=== PATIENT | female | born 1985 | race Caucasian/White ===

== ENCOUNTER 2019-11-03 12:53 | Outpatient (CLI) | payer BC, SELFPAY ==
--- NOTE | 2019-11-03 13:06 | US_ITS ---
WS: [id number] Pelvic ultrasound, Clinical Data: abdominal bloating Comparison: None. Findings: The uterus measures 4.16 cm x 4.82 cm x 8.39 cm. Scar from a prior was identified. The endometrium is 0.54 cm. No intrauterine or abnormal intrauterine mass is seen. The left ovary was not identified. The right ovary measures 1.22 cm x 1.33 cm x 2.20 cm with a small cyst measuring 0.77 x 1.51 x 1.97 c m. US/US pelvic with transvaginal Impression: 1. Negative pelvic ultrasound. 2. Left ovary not identified.
--- NOTE | 2019-11-03 13:06 | US_ITS ---
WS: [id number] Abdomen ultrasound, 11/03/2019 Clinical Data: Abdominal bloating Comparison: None. Findings: The pancreas shows no cyst, pseudocyst or evidence of pancreatitis. The liver shows no cysts, masses or dilated intrahepatic ducts. The gallbladder has no stones or sludge. The is normal with no pericholecystic fluid. The common bile duct is 0.22 cm and no intraductal abnormalities are noted. The right kidney is 4.06 x 5.20 x 11.66 cm. No cysts, masses or hydronephrosis is seen. The left kidney is 3.85 x 4.19 x 10.91 cm. No cysts, masses or hydronephrosis is seen. The abdominal aorta is not dilated and the inferior vena cava has normal flow. No vascular abnormalit ies are seen. The spleen measures 4.20 x 4.27 x 9.74 cm and there are no intrasplenic masses are capsular abnormali ties. US/US abdomen complete* [id number] Impression: Negative abdomen ultrasound.
[2019-11-03 14:56] LABS: Basophils % 0.2 %; Eosinophils # 0.1 10^3/uL (0.0-0.8); Eosinophils % 2.2 %; Hemoglobin 12.8 g/dL (11.5-15.3); Lymphocytes # 1.6 10^3/uL (0.8-4.8); Lymphocytes % 31.9 %; Mean Corpuscular HGB Conc 32.8 g/dL (30.0-36.0); Mean Corpuscular Hemoglobin 30.3 pg (28.0-34.0); Mean Corpuscular Volume 92.2 fL (81-99); Mean Platelet Volume 10.6 fL (7.4-10.4); Monocytes # 0.5 10^3/uL (0.2-0.9); Monocytes % 9.3 %; Neutrophils # 2.8 10^3/uL (1.8-7.7); Neutrophils % 56.2 %; Nucleated Red Blood Cells % 0 %; Platelet Count 222 10^3/cmm (130-400); Red Blood Count 4.23 10^6/uL (4.1-5.3); Red Cell Distribution Width 12.8 % (12.1-15.1)
[2019-11-03 15:20] LABS: Alanine Aminotransferase 23 U/L (0-33); Albumin Level 4.6 g/dL (3.5-5.2); Alkaline Phosphatase 50 IU/L (35-105); Amylase 63 U/L (28-100); Anion Gap 14.9 (5-19); Aspartate Amino Transferase 24 U/L (0-32); Blood Urea Nitrogen 9 mg/dL (6-20); Calcium 9.3 mg/Dl (8.6-10.0); Carbon Dioxide 24 mmol/L (22-29); Chloride 102 mmol/L (98-107); Chol HDL Ratio 4.02 mg/dL (0.0-4.40); Cholesterol 165 mg/dL (0-200); Globulin 2.3 g/dL (1.3-4.6); Glomerular Filtration Rate 115.1 mL/min (90-130); Glucose 89 mg/dL (74-109); HDL Cholesterol 41 mg/dL (60-100); LDL Cholesterol Calculated 109 mg/dL (50-129); LDL HDL Ratio 2.66 RATIO (0.00-3.22); Lipase 24 U/L (13-60); Potassium 3.9 mmol/L (3.5-5.1); Sodium 137 mmol/L (136-145); Thyroid Stimulating Hormone 0.54 uIU/mL (0.27-4.20); Total Bilirubin 0.2 mg/dL (0.15-1.2); Total Protein 6.9 g/dL (6.6-8.7); Triglycerides 74 mg/dL (0-150)
[2019-11-03 15:29] LABS: 25 Hydroxy Vitamin D 26 ng/mL (30-100)
[2019-11-03 15:33] LABS: Add Urine Microscopic? YES; Bilirubin Urine Neg (NEGATIVE); Blood Urine Neg (Negative); Glucose Urine UA Norm (Normal); Ketones Urine 1+ (Negative); Leukocyte Esterase Urine Negative (Negative); Nitrate Urine Negative (Negative); Protein Urine Neg (Negative); Urine Appearance Clear (CLEAR); Urine Color Yellow (Yellow); Urobilinogen Urine Norm (Negative)
[2019-11-03 15:38] LABS: Add Urine Culture? No; Bacteria Urine TRACE; Squamous Epithelial Cell Urine 0-4 (0-5)
[2019-11-04 02:55] LABS: Estmated Average Glucose 91; Hemoglobin A1C 4.8 % (4.0-6.0)
== END 2019-11-03 12:54 | disposition home or self-care (01) ==
PROVIDERS: PCP Nurse Practitioner Family; Visit Provider Nurse Practitioner Family
DX: R53.83 Other fatigue (principal); R14.0 Abdominal distension (gaseous); E55.9 Vitamin D deficiency, unspecified; Z79.899 Other long term (current) drug therapy
CPT/HCPCS: 74018; 76700; 76830; 76856; 80053; 80061; 81003; 82150; 82306; 83036; 83690; 84443; 85025

== ENCOUNTER 2019-12-16 09:09 | Day surgery (SDC) | payer BC, SELFPAY ==
[2019-11-24 08:35] VITALS: BMI 24.1
--- NOTE | 2019-12-16 09:27 | ANES.PREANE2 ---
Pre-Anesthetic Assessment Pre-Anesthetic Assessment: Height/Weight: Height 1.7 m Weight 69.853 kg Preop Diagnosis: Abdominal pain Proposed Procedure: Operation Date: 12/16/19 11:00 Proposed Procedures p EGD(Not Applicable) - Adarsh Vanegas MD Familial anesthetic complications: None Was Beta Dary taken within 24 hours: N/A Last intake: NPO > 8 hrs Social: Social History: No alcohol and No tobacco Exam: Pre-Anes Outpt Exam: alert, oriented x 3, clear to auscultation bilaterally and regular rate & rhythm Airway: Cervical ROM: WNL MP: 1 Dentition: Chipped Pulmonary: Pulmonary: None reported CV/HEM: CV/HEM: HTN : : None reported Hepatic: Hepatic: None reported GI: GI: GERD Comments: hx of PUD 8 yrs ago Metabolic: Metabolic: None reported Musc/skel: Musc/skel: None reported Neuropsych: Neuropsych: Seizure (Seizure 6 yrs ago (started age 11 - unknown etilogy, no longer on treatment)) Anesthetic Plan: ASA status: 2 Anesthesia: MAC Risk of > 500 ml blood loss (7ml/kg in children): No PFSH Anesthesia PFSH: Social History Smoking and tobacco status: never smoked Second hand smoke exposure: No Smoking risk assessment/counseling performed?: No Alcohol intake: never Desire information about alcohol rehabilitation?: No Counseling given: No Desire information about substance/drug rehabilitation?: No Counseling given: No Lives independently: Yes Current occupational status: unemployed History of recent travel: No Data Anesthesia Cardiac Studies: No Data to Display
[2019-12-16 10:30] VITALS: BP 125/79; PULSE 84; RESP 18; TEMP 36.8; O2SAT 97
--- NOTE | 2019-12-16 10:38 | W.PM.OPSUD ---
Surgery/Procedure H&P Update DATE OF PROCEDURE: December 16, 2019 DATE H&P PERFORMED: 11/17/19 H&P UPDATE INFORMATION: I have reviewed H&P completed within last 30 days, I have examined patient prior to procedure and No changes to prior documentation PREOP DIAGNOSIS: Abdominal pain PLANNED PROCEDURE: Operation Date: 12/16/19 11:00 Proposed Procedures p EGD(Not Applicable) - Adarsh Vanegas MD
[2019-12-16 10:46] LABS: OR HCG Qualitative Urine Negative (Negative)
[2019-12-16] MEDS: sodium chloride 0.9% 1,000 ML 30 ML (10:57)
[2019-12-16 12:30] VITALS: BP 119/77; PULSE 76; RESP 16; TEMP 36.6; O2SAT 96
--- NOTE | 2019-12-16 12:35 | ANE.PACU2 ---
 Inpatient post-anesthesia follow up: Airway intact: Yes Vital signs: Temperature 98.3 F Pulse Rate 84 Respiratory Rate 18 Blood Pressure 125/79 Pulse Oximetry 97 Oxygen Delivery Me thod Room Air Oxygen Flow Rate Fraction of Inspir ed Oxygen Hydration adequate: Yes Nausea and vomiting: No Pain level: 1 Mental status: Baseline
[2019-12-16 12:41] VITALS: BP 112/77; PULSE 85; RESP 18; O2SAT 97
== END 2019-12-16 12:58 | disposition home or self-care (01) ==
PROVIDERS: Anesthesiology; PCP Nurse Practitioner Family; Visit Provider Surgery
PROC: 0DJ08ZZ Inspection of Upper Intestinal Tract, Via Natural or Artificial Opening Endoscopic (ICD-10-PCS; CPT 43235; principal; 2019-12-16 11:00)
DX: R10.9 Unspecified abdominal pain (principal); K21.9 Gastro-esophageal reflux disease without esophagitis; K29.70 Gastritis, unspecified, without bleeding; I10 Essential (primary) hypertension; Z87.11 Personal history of peptic ulcer disease
CPT/HCPCS: 12345; 43239; 84703; 88305; J0171; J2704; J7030

== ENCOUNTER → 2021-02-18 10:49 | Outpatient (BNVA) | payer BC, SELFPAY | PROVIDERS: PCP Nurse Practitioner Family; Visit Provider Nurse Practitioner Family | DX: R22.31 Localized swelling, mass and lump, right upper limb (principal) | CPT/HCPCS: 73140 ==

== ENCOUNTER → 2021-05-16 11:35 | Outpatient (BNVA) | payer OTHER, SELFPAY | PROVIDERS: PCP Nurse Practitioner Family; Visit Provider Nurse Practitioner Family | DX: Z20.822 Contact with and (suspected) exposure to COVID-19 (principal); J06.9 Acute upper respiratory infection, unspecified | CPT/HCPCS: 87635 ==